=== PATIENT | male | born 1985 | race Caucasian/White ===

== ENCOUNTER 2016-11-11 08:45 | Emergency (ER) | payer OTHER ==
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
[2016-11-11 11:31] VITALS: BP 117/79; PULSE 67; RESP 18; TEMP 98.8; O2SAT 96
== END 2016-11-11 11:30 | disposition home or self-care (01) ==
DX: S82.142A Displaced bicondylar fracture of left tibia, initial encounter for closed fracture (principal); F17.200 Nicotine dependence, unspecified, uncomplicated; V18.0XXA Pedal cycle driver injured in noncollision transport accident in nontraffic accident, initial encounter; Y99.8 Other external cause status; Y93.89 Activity, other specified
CPT/HCPCS: L1830